=== PATIENT | female | born 1995 | race Caucasian/White ===

== ENCOUNTER 2016-04-26 22:38 | Emergency (ER) | payer SELFPAY ==
[~2016-04-26] VITALS: Ht 175.3 cm; Wt 70.3 kg
[2016-04-26 23:31] VITALS: BP 125/89
== END 2016-04-27 01:21 | disposition home or self-care (01) ==
LOC: ER 22:38
DX: S46.811A Strain of other muscles, fascia and tendons at shoulder and upper arm level, right arm, initial encounter (principal); V43.62XA Car passenger injured in collision with other type car in traffic accident, initial encounter; Y93.89 Activity, other specified; Y92.488 Other paved roadways as the place of occurrence of the external cause; Y99.8 Other external cause status
CPT/HCPCS: 71010; 84703; 99283; A4606; Z7610